=== PATIENT | female | born 1950 | race Two or more races ===

== ENCOUNTER 2021-03-29 09:25 | Outpatient (CLI) | payer OTHER | END 2021-03-29 09:29 | disposition home or self-care (01) | LOC: MRI 09:25 → NUCLEAR 09:25 | DX: I87.2 Venous insufficiency (chronic) (peripheral) (principal) ==

== ENCOUNTER 2021-12-25 14:16 | Outpatient (CLI) | payer OTHER | END 2021-12-25 14:22 | disposition home or self-care (01) | LOC: LAB 14:16 | PROVIDERS: ATTEND Radiology Diagnostic Radiology | DX: R63.4 Abnormal weight loss (principal) ==

== ENCOUNTER 2022-01-02 08:11 | Outpatient (CLI) | payer OTHER | END 2022-01-02 08:19 | disposition home or self-care (01) | LOC: TOM 08:11 | PROVIDERS: ATTEND Internal Medicine Gastroenterology | DX: R10.13 Epigastric pain (principal) ==

== ENCOUNTER 2022-03-21 10:27 | Outpatient (CLI) | payer OTHER | END 2022-03-21 10:31 | disposition home or self-care (01) | LOC: NUCLEAR 10:27 | PROVIDERS: ATTEND Family Medicine | DX: M81.0 Age-related osteoporosis without current pathological fracture (principal) ==

== ENCOUNTER → 2022-07-20 | Outpatient (CLI) | payer OTHER | END | disposition home or self-care (01) | LOC: NUCLEAR 08:33 | PROVIDERS: ATTEND Surgery Vascular Surgery | DX: I87.303 Chronic venous hypertension (idiopathic) without complications of bilateral lower extremity (principal) ==

== ENCOUNTER 2022-10-29 09:09 | Outpatient (CLI) | payer OTHER | END 2022-10-29 09:10 | disposition home or self-care (01) | LOC: LAB 09:09 | PROVIDERS: ATTEND Family Medicine | DX: D64.9 Anemia, unspecified (principal); B17.9 Acute viral hepatitis, unspecified ==

== ENCOUNTER 2022-10-29 15:15 | Inpatient (IN) | payer OTHER ==
[~2022-10-29] VITALS: Ht 33 cm; Wt 40.8 kg
[2022-11-03] MEDS ORDERED: COZAAR50 MG PO (17:36)
[2022-11-03] MEDS ORDERED: IRON325 MG PO (17:36)
[2022-11-03] MEDS ORDERED: FAMOTIDINE20 MG PO (17:37)
== END 2022-11-03 22:39 | disposition home or self-care (01) | DRG 812 ==
LOC: ER 15:15 → MEDI 22:19
PROVIDERS: ADMIT Internal Medicine; ATTEND Internal Medicine
PROC: 30233N1 Transfusion of Nonautologous Red Blood Cells into Peripheral Vein, Percutaneous Approach (ICD-10-PCS; principal; 2022-10-30)
DX: D64.9 Anemia, unspecified (principal); I10 Essential (primary) hypertension; Z20.822 Contact with and (suspected) exposure to COVID-19; R50.84 Febrile nonhemolytic transfusion reaction

== ENCOUNTER 2025-03-09 09:21 | Outpatient (CLI) | payer OTHER ==
[~2025-03-09 09:21] MED LIST: COZAAR50 MG PO; FAMOTIDINE20 MG PO; IRON325 MG PO
== END 2025-03-09 09:22 | disposition home or self-care (01) ==
LOC: NUCLEAR 09:21
PROVIDERS: ATTEND Surgery Vascular Surgery
DX: I87.2 Venous insufficiency (chronic) (peripheral) (principal)